=== PATIENT | female | born 1985 | race African-American/Black ===

== ENCOUNTER 2023-07-18 10:21 | Observation (INO) | payer OTHER ==
[2023-07-18 13:10] LABS: BASO % 1.3 % (0-2.0); EOS % 2.9 % (0-4.5); HEMATOCRIT 36.1 % (32.4-45.2); HEMOGLOBIN 11.9 GM/dL (10.7-15.3); LYMPH % 38.3 % (8-40); MCH 27.7 pg (25.7-33.7); MEAN CELL VOLUME 83.8 fl (80-96); MEAN PLT VOLUME 6.9 fl (7.5-11.1); MONO % 8.1 % (3.8-10.2); NEUT % 49.4 % (42.8-82.8); PLATELET COUNT 345 10^3/uL (134-434); RBC 4.31 M/mm3 (3.60-5.2); RDW 18.3 % (11.6-15.6); WHITE BLOOD COUNT 6.6 K/mm3 (4.0-10.0)
[2023-07-18 13:16] LABS: INR 1.86 (0.83-1.09); PROTHROMBIN TIME (PATIENT) 21.5 SEC (9.7-13.0)
[2023-07-18 13:18] LABS: ACTIVATED PTT 37.2 SECONDS (25.2-36.5)
[2023-07-18] MEDS ORDERED: ASPIRIN 81 MG CHEWABLE TABLETS PO ONE (13:24)
[2023-07-18 13:30] VITALS: RESP 18; BMI 31.9
[2023-07-18 13:43] VITALS: BP 153/86; PULSE 103; TEMP 97.8
[2023-07-18] MEDS ORDERED: ASPIRIN 325 MG TABLET ONE (13:44)
[2023-07-18 13:45] LABS: CHLORIDE 105 mmol/L (98-107); SODIUM 138 mmol/L (136-145)
[2023-07-18 13:46] LABS: CALCIUM 8.2 mg/dL (8.5-10.1)
[2023-07-18 13:47] LABS: ALBUMIN 3.1 g/dl (3.4-5.0); ANION GAP 7 mmol/L (4-13); CO2 26 mmol/L (21-32)
[2023-07-18 13:48] LABS: BLOOD UREA NITROGEN 12.2 mg/dL (7-18); GLUCOSE,RANDOM 85 mg/dL (74-106)
[2023-07-18 13:51] LABS: CHOLESTEROL 185 mg/dL (50-200); SGOT/AST 14 U/L (15-37); SGPT/ALT 13 U/L (13-61)
[2023-07-18 13:53] LABS: BILIRUBIN,TOTAL 0.7 mg/dL (0.2-1); HDL CHOLESTEROL 67 mg/dL (40-60); LDL CHOLESTEROL (ONLY SJRH) 101 mg/dL (5-100)
[2023-07-18 13:54] LABS: ALK PHOS 103 U/L (45-117)
== END 2023-07-18 17:16 | disposition left against medical advice (07) ==
LOC: JER 10:21 → JERBED 13:22
PROVIDERS: ADMIT Internal Medicine; ATTEND Internal Medicine
DX: R27.0 Ataxia, unspecified (principal); D68.51 Activated protein C resistance; Z79.01 Long term (current) use of anticoagulants; Z86.73 Personal history of transient ischemic attack (TIA), and cerebral infarction without residual deficits
CPT/HCPCS: 36415; 70450-TC; 70496-TC; 70498-TC; 80053; 80061; 82550; 82553; 82962; 83036; 84484; 85025; 85610; 85730; 86850; 86900; 86901; 93005; 93010; 99285-25; G0378; Q9967